=== PATIENT | female | born 2000 | race Caucasian/White ===

== ENCOUNTER 2022-11-02 10:20 | Emergency (ER) | payer OTHER ==
[~2022-11-02] VITALS: Ht 154.9 cm; Wt 62.1 kg
[2022-11-02 12:42] LABS: BASO % 0.3 % (0.0-1.0); EOS # 0.3 10^3/uL (0.0-0.5); EOS % 3.6 % (0.0-3.0); HEMATOCRIT 42.3 % (36.0-47.0); HEMOGLOBIN 14.5 g/dl (12.0-15.5); LYMPH # 1.9 10^3/uL (1.5-5.0); MEAN CORPUSCULAR HEMOGLOBIN 32.4 pg (27.0-33.0); MEAN CORPUSCULAR HGB CONC 34.3 g/dl (32.0-36.5); MEAN CORPUSCULAR VOLUME 94.6 fl (80.0-96.0); MONO # 0.4 10^3/uL (0.0-0.8); MONO % 5.1 % (2.0-8.0); NEUTROPHILS # 4.4 10^3/uL (1.5-8.5); NEUTROPHILS % 63.7 % (36.0-66.0); PLATELET COUNT, AUTOMATED 179 10^3/uL (150-450); RED BLOOD COUNT 4.47 10^6/uL (4.00-5.40); WHITE BLOOD COUNT 6.9 10^3/uL (4.0-10.0)
[2022-11-02 12:58] LABS: LIPASE 33 U/L (12-53)
[2022-11-02 13:00] LABS: ALBUMIN 4.2 G/DL (3.2-5.2); ALKALINE PHOSPHATASE 97 U/L (46-116); ALT/SGPT 185 U/L (7.0-40); AST/SGOT 90 U/L (<34); BILIRUBIN,DIRECT 0.1 MG/DL (<0.4); BILIRUBIN,TOTAL 0.4 MG/DL (0.3-1.2); TOTAL PROTEIN 7.3 G/DL (5.7-8.2)
[2022-11-02] MEDS ORDERED: NS 1,000 ML IV ONE (13:50)
[2022-11-02] MEDS ORDERED: ONDANSETRON 4MG 2ML VIAL IV ONE (13:50)
[2022-11-02 13:54] LABS: BLOOD UREA NITROGEN 15 MG/DL (9-23); CALCIUM LEVEL 9.4 MG/DL (8.5-10.1); CARBON DIOXIDE LEVEL 28 MMOL/L (20-31); CHLORIDE LEVEL 104 MMOL/L (98-107); CREATININE FOR GFR 0.64 MG/DL (0.55-1.30); GLOMERULAR FILTRATION RATE > 60.0 (>60); GLUCOSE, FASTING 87 MG/DL (60-100); POTASSIUM SERUM 4.1 MMOL/L (3.5-5.1); SODIUM LEVEL 138 MMOL/L (136-145)
[2022-11-02 15:20] LABS: ACETAMINOPHEN LEVEL < 2.0 UG/ML (10.0-20.0)
[2022-11-02 15:25] LABS: HEPATITIS B CORE ANTIBODY IGM NEGATIVE (NEGATIVE); HEPATITIS C VIRUS ABY INDEX 0.16 INDEX (<0.8)
[2022-11-02] MEDS ORDERED: MIRA3350 PO ×2 (16:18→16:20)
[2022-11-02] MEDS ORDERED: ONDA4TAB6 PO ×2 (16:18→16:20)
[2022-11-02 16:40] VITALS: BP 129/79; TEMP 98; O2SAT 99
== END 2022-11-02 16:42 | disposition home or self-care (01) ==
LOC: M ED 10:20
DX: R10.9 Unspecified abdominal pain (principal); R11.2 Nausea with vomiting, unspecified; K58.9 Irritable bowel syndrome, unspecified; G90.A Postural orthostatic tachycardia syndrome [POTS]
CPT/HCPCS: 76705; 80047; 80048; 80076; 80143; 81001; 83690; 84702; 85025; 86705; 86709; 86803; 87086; 87340; 96374; 99283; J2405